=== PATIENT | male | born 1940 | race Caucasian/White ===

== ENCOUNTER 2017-02-15 14:06 | Emergency (ER) | payer BC ==
[~2017-02-15] VITALS: Ht 167.6 cm; Wt 84.4 kg
[~2017-02-15 14:06] MED LIST: ACETAMINOPHEN325 M1 PO; ACIDOPHILUS LA1 EACH PO; ACIDOPHILUS1 EAC3 PO; ALPHA LIPOIC A100 MG PO; AMOXICILLIN 50500 MG PO; ASPIRIN81 M2 PO; BACTROBAN NASAL1 GM PO; CARDIZEM CD240 MG PO; CARVEDILOL12.5 MG PO; CLOPIDOGREL75 MG PO; COLACE 100 MG100 MG PO; CRESTOR10 MG PO; DILTIAZEM 24HR240 M1 PO; FLOMAX0.4 MG PO; GLYCOLAX POWDER17 G1 PO; GYMNEMA SYLVESTR1 GM PO; HUMALOG MI100 UNIT/7 PO; HUMALOG MI100 UNIT/7 SUBQ; JARDIANCE10 MG PO; LAMICTAL 25 MG25 M1 PO; LANTUS SUBQ; LANTUSSOLASTAR SUBQ; LASIX 40 MG TAB40 M1 PO; LASIX 40 MG TAB40 M2 PO; LEXAPRO 10 MG T10 M1 PO; LISINOPRIL10 MG PO; LISINOPRIL20 MG PO; NORVASC10 MG PO; NORVASC5 MG PO; NOVOLOG100 UNIT/1 SUBQ; NUEDEXTA 20-101 EACH PO; OMEGA 3; PACERONE 200 M200 M1 PO; PLAVIX 75 MG TA75 M1 PO; PLAVIX 75 MG TA75 MG PO; POTASSIUM20 PO; PRINIVIL20 MG PO; PROAIR HFA8.5 GM INH; PROBIOTIC1 EAC1 PO; RED YEAST RICE600 MG PO; TOPAMAX 25 MG T25 M1 PO; VANADYL SULFATE1 GM PO; VITAMIN E PO; VITAMINC500 PO; VITCB500GO; WELLBUTRIN XL150 MG PO; ZESTRIL20 MG PO; ZESTRIL40 MG PO; ZESTRIL5 MG PO; [UNRECOGNIZED DRUG - OTHER]; [UNRECOGNIZED DRUG - OTHER]; [UNRECOGNIZED DRUG - OTHER]; [UNRECOGNIZED DRUG - OTHER] PO; [UNRECOGNIZED DRUG - OTHER] PO; [UNRECOGNIZED DRUG - REMARK]
[2017-02-15] MEDS ORDERED: NUEDEXTA 20-101 EACH PO (14:13)
[2017-02-15] MEDS ORDERED: CRESTOR5 MG PO (14:14)
[2017-02-15 15:27] LABS: ABSOLUTE BASOPHILS 0.1 thou/uL (0.0-0.2); ABSOLUTE EOSINOPHILS 0.3 thou/uL (0.0-0.7); ABSOLUTE LYMPHOCYTES 1.5 thou/uL (0.8-5.3); ABSOLUTE MONOCYTES 0.8 thou/uL (0.0-1.2); ABSOLUTE NEUTROPHILS 6.3 thou/uL (1.6-8.1); BASOPHILS 0.7 %; EOSINOPHILS 3.7 %; HEMATOCRIT 38.1 % (42.0-52.0); HEMOGLOBIN 12.6 gm/dL (14.0-18.0); LYMPHOCYTES 16.4 %; MCH 29.2 pg (26.0-34.0); MCHC 33.1 g/dL (28.0-37.0); MCV 88.3 fL (80.0-100.0); MONOCYTES 9.3 %; MPV 8.9 fl. (7.2-11.1); NUCLEATED RBCS 0 /100WBC; PLATELET COUNT* 177 thou/uL (150-400); POLYS 69.9 %; RBC 4.31 mil/uL (4.50-6.00); RDW-CV 14.1 % (10.5-14.5)
[2017-02-15 15:37] LABS: APTT 30.3 Seconds (25.0-31.3); INR 1.1; PROTIME 10.7 Seconds (9.20-11.50)
[2017-02-15 15:42] LABS: ANION GAP 6 mmol/L (7-16); BUN 25 mg/dL (7-18); CALCIUM 8.3 mg/dL (8.5-10.1); CHLORIDE 109 mmol/L (98-107); CO2 29 mmol/L (21-32); CREATININE 1.9 mg/dL (0.6-1.3); GLUCOSE 82 mg/dL (70-99); POTASSIUM 3.9 mmol/L (3.5-5.1); SODIUM 144 mmol/L (136-145)
[2017-02-15 15:47] LABS: ALBUMIN 3.4 g/dL (3.4-5.0); ALKALINE PHOSPHATASE 100 U/L (46-116); NT-PRO BRAIN NAT PEPTIDE 452 pg/mL (<300); SGOT 26 U/L (15-37); SGPT 39 U/L (30-65); TOTAL BILIRUBIN 0.3 mg/dL (<0.1-1.0); TROPONIN-I LEVEL <0.06 ng/mL (<0.06)
[2017-02-15 15:50] LABS: URINE BILIRUBIN NEGATIVE (Negative); URINE BLOOD NEGATIVE (Negative); URINE CLARITY CLEAR; URINE COLOR YELLOW; URINE GLUCOSE-RANDOM 2+ (Negative); URINE KETONES NEGATIVE (Negative); URINE LEUKOCYTES-REFLEX NEGATIVE (Negative); URINE NITRITE-REFLEX NEGATIVE (Negative); URINE PROTEIN NEGATIVE (Negative); URINE SPECIFIC GRAVITY 1.025 (1.005-1.030); URINE UROBILINOGEN 0.2 E.U./dl (0.2-1.0)
[2017-02-15 16:36] VITALS: BP 127/54
--- NOTE | 2017-02-15 16:46 | EKG ---
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 : 1940 Requested By: Branden German Order Number: [id number] MD: Aren Guzman Measurements Intervals [place] Rate: 54 P: NM: QRS: 11 QRSD: 99 T: 45 QT: 446 QTc: 423 Interpretive Statements Sinus bradycardia Delayed R-wave progression Compared to ECG 08/22/2016 13:56:02 Atrial premature complex(es) no longer present Electronically Signed On 02-15-2017 16:46:43 ELECTROLYSIS ENGINEER by Aren Guzman [email or web address] <ELECTRONICALLY SIGNED> By: Aren Guzman MD, [facility] 02/15/17 1646 1514 1514 Aren Guzman MD, FAC /EPI
== END 2017-02-15 16:37 | disposition home or self-care (01) ==
LOC: M.ERS 14:06
PROVIDERS: Family Medicine
DX: R53.1 Weakness (principal); I10 Essential (primary) hypertension; E78.00 Pure hypercholesterolemia, unspecified; J44.9 Chronic obstructive pulmonary disease, unspecified; E11.9 Type 2 diabetes mellitus without complications; G40.909 Epilepsy, unspecified, not intractable, without status epilepticus; Z86.73 Personal history of transient ischemic attack (TIA), and cerebral infarction without residual deficits; I25.10 Atherosclerotic heart disease of native coronary artery without angina pectoris; Z95.5 Presence of coronary angioplasty implant and graft; Z86.79 Personal history of other diseases of the circulatory system; Z88.5 Allergy status to narcotic agent; Z88.2 Allergy status to sulfonamides; Z88.6 Allergy status to analgesic agent; Z88.8 Allergy status to other drugs, medicaments and biological substances

== ENCOUNTER → 2017-03-11 | Outpatient (CLI) | payer BC ==
[~2017-03-11] MED LIST changes: +CRESTOR5 MG PO; +PROSCAR 5MG TABL5 MG PO; +VITAMIN B122500 MC1 PO; +VITAMIN C WIT1000 MG; +VITAMIN D32000 UNI1; +VITAMIN E1000 UNI3 PO
[2017-03-11 13:54] LABS: CREATININE 1.8 mg/dL (0.6-1.3)
== END ==
LOC: M.LAB 13:19 → M.MRI 14:30
PROVIDERS: Nurse Practitioner Family
DX: M47.892 Other spondylosis, cervical region (principal); M43.22 Fusion of spine, cervical region; M50.221 Other cervical disc displacement at C4-C5 level; R27.0 Ataxia, unspecified

== ENCOUNTER 2017-06-17 19:40 | Inpatient (IN) | payer BC ==
[~2017-06-17] VITALS: Ht 167.6 cm; Wt 84.7 kg
[~2017-06-17 19:40] MED LIST changes: -PROSCAR 5MG TABL5 MG PO; -VITAMIN B122500 MC1 PO; -VITAMIN C WIT1000 MG; -VITAMIN D32000 UNI1; -VITAMIN E1000 UNI3 PO
[2017-06-17 19:50] VITALS: BP 154/66
[2017-06-17 20:05] LABS: ABSOLUTE BASOPHILS 0.1 thou/uL (0.0-0.2); ABSOLUTE EOSINOPHILS 0.2 thou/uL (0.0-0.7); ABSOLUTE LYMPHOCYTES 1.5 thou/uL (0.8-5.3); ABSOLUTE MONOCYTES 0.7 thou/uL (0.0-1.2); ABSOLUTE NEUTROPHILS 7.8 thou/uL (1.6-8.1); BASOPHILS 0.6 %; EOSINOPHILS 1.8 %; HEMATOCRIT 39.9 % (42.0-52.0); HEMOGLOBIN 13.2 gm/dL (14.0-18.0); LYMPHOCYTES 15.1 %; MCH 29.9 pg (26.0-34.0); MCHC 33.1 g/dL (28.0-37.0); MCV 90.1 fL (80.0-100.0); MONOCYTES 6.9 %; MPV 8.5 fl. (7.2-11.1); NUCLEATED RBCS 0 /100WBC; PLATELET COUNT* 199 thou/uL (150-400); POLYS 75.6 %; RBC 4.42 mil/uL (4.50-6.00); RDW-CV 14.7 % (10.5-14.5); WBC 10.3 thou/uL (4.0-11.0)
[2017-06-17 20:09] LABS: ANION GAP 8 mmol/L (7-16); BUN 31 mg/dL (7-18); CALCIUM 8.6 mg/dL (8.5-10.1); CHLORIDE 105 mmol/L (98-107); CO2 30 mmol/L (21-32); CREATININE 2.3 mg/dL (0.6-1.3); GLUCOSE 207 mg/dL (70-99); POTASSIUM 4.9 mmol/L (3.5-5.1); SODIUM 143 mmol/L (136-145)
[2017-06-17 20:13] LABS: APTT 29.6 Seconds (25.0-31.3); INR 1.1; PROTIME 10.4 Seconds (9.20-11.50)
[2017-06-17 20:15] LABS: ALBUMIN 3.5 g/dL (3.4-5.0); ALKALINE PHOSPHATASE 101 U/L (46-116); LIPASE 52 U/L (73-393); SGOT 18 U/L (15-37); SGPT 32 U/L (30-65); TOTAL BILIRUBIN 0.4 mg/dL (<0.1-1.0); TOTAL PROTEIN 7.4 g/dL (6.4-8.2); TROPONIN-I LEVEL <0.06 ng/mL (<0.06)
[2017-06-17 20:58] LABS: URINE BILIRUBIN NEGATIVE (Negative); URINE BLOOD NEGATIVE (Negative); URINE CLARITY CLEAR; URINE COLOR STRAW; URINE GLUCOSE-RANDOM 3+ (Negative); URINE KETONES NEGATIVE (Negative); URINE LEUKOCYTES-REFLEX NEGATIVE (Negative); URINE NITRITE-REFLEX NEGATIVE (Negative); URINE PROTEIN NEGATIVE (Negative); URINE SPECIFIC GRAVITY 1.015 (1.005-1.030); URINE UROBILINOGEN 0.2 E.U./dl (0.2-1.0)
[2017-06-17 21:06] LABS: AMP/METHAMP Negative (Negative); BARBITURATES Negative (Negative); BENZODIAZEPINES Negative (Negative); COCAINE Negative (Negative); METHADONE Negative (Negative); OPIATES Negative (Negative); PCP Negative (Negative); THC Negative (Negative)
[2017-06-17 22:50] VITALS: BP 145/58
[2017-06-17 22:52] VITALS: BP 141/63
[2017-06-18 04:00] VITALS: BP 150/58
--- NOTE | 2017-06-18 05:00 | NUR ---
PATIENT RESTED IN BED. PATIENT DID NOT SHOW SIGNS OF DISTRESS. PATIENT IS NPO, PATIENT TO SEE CARDIO AND NEURO IN MORNING. PATIENT DID NOT COMPLAIN OF SOB OR NEW ONSET OF WEAKNESS. PATIENT HAS LEFT SIDED WEAKNESS. PATIENT WAS ABLE TO USE BED SIDE COMMOND. PATIENT IS RUNNING AFIB/AFLUTTER.
--- NOTE | 2017-06-18 05:35 | NUR ---
DOCTOR JOE NOTIFIED OF PATIENT AFIB/AFLUTTER, NO NEW ORDERS.
[2017-06-18 08:00] VITALS: BP 125/56
[2017-06-18 10:38] VITALS: BP 125/56
--- NOTE | 2017-06-18 13:08 | EKG ---
[place] [address] ELECTROCARDIOGRAM REPORT Name: KALIA AWAD Room: [address] ADM IN M.R.#: [id number] Admission: 06/17/17 Attend Phys: Ness Prieto Discharge: Date of : 40 Report #: [id number] THIS REPORT FOR: //name// [facility] Test Date: 2017-06-18 Test Time: 02:21:36 Pat Name: KALIA AWAD Department: Room: [address] Gender: M Lap Hand Tool: MAYELA : 1940 Requested By: Maxime Pace Order Number: [id number] Reading MD: Ian [place] Measurements Intervals [place] Rate: 68 P: TN: QRS: 16 QRSD: 102 T: 10 QT: 405 QTc: 431 Interpretive Statements Atrial flutter with predominant 4:1 AV block Nonspecific repol abnormality, inferior leads Compared to ECG 02/15/2017 15:14:22 AV block, advanced (high-grade) now present Early repolarization now present Sinus bradycardia no longer present Electronically Signed On 06-18-2017 13:08:45 CDT by Ian Swan [email or web address] <ELECTRONICALLY SIGNED> By: Ian Swan MD, FACC 06/18/17 1308 0 0 Ian Swan MD, FACC /EPI
--- NOTE | 2017-06-18 13:08 | EKG ---
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: : 1940 Requested By: Taylor Michelle Order Number: [id number] MD: Ian Swan Measurements Intervals [place] Rate: 67 P: -62 DE: 129 QRS: 1 QRSD: 101 T: 8 QT: 407 QTc: 430 Interpretive Statements aflutter variable block Borderline T abnormalities, inferior leads Compared to ECG 02/15/2017 15:14:22 Ectopic atrial rhythm now present T-wave abnormality now present Sinus bradycardia no longer present Electronically Signed On 06-18-2017 13:08:20 CDT by Ian Swan [email or web address] <ELECTRONICALLY SIGNED> By: Ian Swan MD, [facility] 06/18/17 1308 53 53 Ian Swan MD, FAC /EPI
[2017-06-18 13:20] VITALS: BP 143/64
--- NOTE | 2017-06-18 14:00 | NUR ---
VSS, ASSUMED CARE IN THE AM, ASSESSMENT PERFORMED AND CHARTED, FALL PRECAUTION IN PLACE AND CALL LIGHT IN RECAH AND UP WITH ONE, ON RA AND IS TRACING AFIB ON THE MONITOR, PT DENIES ANY PAIN IS UP WITH STAND BY AND HIS GOAL IS TO D/C TO HOME, AT THIS TIME I HAVE RECIEVED D/C INSTRUCTIONS AND FILLED OUT D/C INSTRUCTIONS, IV AND TELE MONITOR WILL BE TAKEN OFF AT D/C, ALL PT BELONGINGS GATHERED AND PLACE WITH PT, PT DENIES ANY QUESTIONS OR CONCERNS AT TIME OF D/C, PT WAS TAKEN OUT VIA WHEEL CHAIR TO CAR BY STAFF. HOURLY ROUNDS COMPLETED AND WILL FOLLOW WITH D/C
[2017-06-18 16:44] VITALS: BP 117/53
== END 2017-06-18 18:24 | disposition home or self-care (01) | DRG 74 ==
LOC: M.ERS 19:40 → M.TBA-ER 21:52 → M.2W 22:49
PROVIDERS: Personal Emergency Response Attendant; ADMIT Internal Medicine
DX: E11.42 Type 2 diabetes mellitus with diabetic polyneuropathy (principal); I48.92 Unspecified atrial flutter; N18.4 Chronic kidney disease, stage 4 (severe); I48.91 Unspecified atrial fibrillation; I25.10 Atherosclerotic heart disease of native coronary artery without angina pectoris; I12.9 Hypertensive chronic kidney disease with stage 1 through stage 4 chronic kidney disease, or unspecified chronic kidney disease; E78.5 Hyperlipidemia, unspecified; J44.9 Chronic obstructive pulmonary disease, unspecified; Z95.1 Presence of aortocoronary bypass graft; Z95.2 Presence of prosthetic heart valve; Z79.4 Long term (current) use of insulin; Z87.81 Personal history of (healed) traumatic fracture; Z98.52 Vasectomy status; Z88.6 Allergy status to analgesic agent; Z88.2 Allergy status to sulfonamides; Z88.8 Allergy status to other drugs, medicaments and biological substances; Z86.73 Personal history of transient ischemic attack (TIA), and cerebral infarction without residual deficits; Z87.891 Personal history of nicotine dependence; Z79.899 Other long term (current) drug therapy

== ENCOUNTER 2017-09-21 20:10 | Inpatient (IN) | payer BC ==
[~2017-09-21] VITALS: Ht 167.6 cm; Wt 87.2 kg
[2017-09-21 20:12] VITALS: BP 149/57
[2017-09-21] MEDS ORDERED: PROSCAR 5MG TABL5 MG PO (20:35)
[2017-09-21] MEDS ORDERED: VITAMIN B122500 MC1 PO (20:36)
[2017-09-21] MEDS ORDERED: VITAMIN C WIT1000 MG (20:36)
[2017-09-21] MEDS ORDERED: VITAMIN E1000 UNI3 PO (20:37)
[2017-09-21] MEDS ORDERED: VITAMIN D32000 UNI1 (20:37)
[2017-09-21 21:04] LABS: BE -0.9 mmol/L (-2 to +3); HCO3 23.4 mmol/L (22.0-26.0); PCO2 37.6 mmHg (35.0-45.0); PO2 71.4 mmHg (75.0-100.0); pH 7.412 (7.340-7.450)
[2017-09-21 21:04] LABS: ABSOLUTE EOSINOPHILS 0.2 thou/uL (0.0-0.7); ABSOLUTE LYMPHOCYTES 1.1 thou/uL (0.8-5.3); ABSOLUTE MONOCYTES 0.7 thou/uL (0.0-1.2); ABSOLUTE NEUTROPHILS 6.5 thou/uL (1.6-8.1); BASOPHILS 0.3 %; EOSINOPHILS 2.3 %; HEMATOCRIT 36.2 % (42.0-52.0); HEMOGLOBIN 12.1 gm/dL (14.0-18.0); LYMPHOCYTES 13.1 %; MCH 30.4 pg (26.0-34.0); MCHC 33.4 g/dL (28.0-37.0); MCV 91.1 fL (80.0-100.0); MONOCYTES 7.9 %; MPV 8.6 fl. (7.2-11.1); NUCLEATED RBCS 0 /100WBC; PLATELET COUNT* 190 thou/uL (150-400); POLYS 76.4 %; RBC 3.97 mil/uL (4.50-6.00); RDW-CV 14.6 % (10.5-14.5); WBC 8.5 thou/uL (4.0-11.0)
[2017-09-21 21:12] LABS: ANION GAP 8 mmol/L (7-16); BUN 24 mg/dL (7-18); CALCIUM 8.1 mg/dL (8.5-10.1); CHLORIDE 106 mmol/L (98-107); CO2 26 mmol/L (21-32); CREATININE 1.9 mg/dL (0.6-1.3); GLUCOSE 389 mg/dL (70-99); POTASSIUM 4.3 mmol/L (3.5-5.1); SODIUM 140 mmol/L (136-145)
[2017-09-21 21:23] LABS: ALBUMIN 2.8 g/dL (3.4-5.0); ALKALINE PHOSPHATASE 98 U/L (46-116); NT-PRO BRAIN NAT PEPTIDE 529 pg/mL (<300); SGOT 25 U/L (15-37); SGPT 30 U/L (30-65); TOTAL BILIRUBIN 0.2 mg/dL (<0.1-1.0); TOTAL PROTEIN 6.3 g/dL (6.4-8.2); TROPONIN-I LEVEL <0.06 ng/mL (<0.06)
[2017-09-21 21:50] LABS: URINE BILIRUBIN NEGATIVE (Negative); URINE BLOOD NEGATIVE (Negative); URINE CLARITY CLEAR; URINE COLOR YELLOW; URINE GLUCOSE-RANDOM 3+ (Negative); URINE KETONES NEGATIVE (Negative); URINE LEUKOCYTES-REFLEX NEGATIVE (Negative); URINE NITRITE-REFLEX NEGATIVE (Negative); URINE PROTEIN NEGATIVE (Negative); URINE SPECIFIC GRAVITY <= 1.005 (1.005-1.030); URINE UROBILINOGEN 0.2 E.U./dl (0.2-1.0)
[2017-09-21 22:15] VITALS: BP 171/85
[2017-09-21 22:26] VITALS: BP 156/50
--- NOTE | 2017-09-22 04:51 | NUR ---
PT ADMITTED TO ROOM 215 FROM ER. PT MOVED TO HOSPITAL BED WITH HELP FROM STAFF. PT ORIENTED TO ROOM, CALL SYSTEM,A ND BED AND TV CONTORLS. PT VERBALIZED GOOD UNDERSTANDING. RESP REG AND UNALOBRED SKIN W/D NO ACUTE DISTRSS NOTED. O2 2L BNC APPLIED ORDERED. TELEMETRY PACK APPLIED. VSS AND NO ACUTE CHANGES DURING SHIFT WILL CONTINUE TO MONITOR
[2017-09-22 08:00] VITALS: BP 128/47
--- NOTE | 2017-09-22 11:00 | EKG ---
[place] [address] ELECTROCARDIOGRAM REPORT Name: KALIA AWAD PEPPER Room: [address] ADM IN .R.#: [id number] Admission: 09/21/17 Attend Phys: Jhonatan Ceja MD Discharge: Date of : 40 Report #: [id number] THIS REPORT FOR: //name// [facility] ED Test Date: 2017-09-21 Test Time: 20:39:34 Pat Name: KALIA AWAD Department: Room: [facility] Gender: M Watch Dial Maker: : 1940 Requested By: Taylor Michelle Order Number: [id number] MD: Ovi Bui Measurements Intervals [place] Rate: 57 P: -13 [place]: 212 QRS: 12 QRSD: 101 T: 34 QT: 432 QTc: 421 Interpretive Statements Sinus bradycardia Borderline prolonged [place] interval Anteroseptal infarct, old Compared to ECG 06/18/2017 02:21:36 Atrial flutter no longer present Electronically Signed On 09-22-2017 11:00:30 CDT by Ovi Bui [email or web address] <ELECTRONICALLY SIGNED> By: Ovi Bui MD, FACC 09/22/17 1100 38 38 Ovi Bui MD, [facility] /EPI
[2017-09-22 12:23] VITALS: BP 156/55
[2017-09-22 14:22] LABS: CHOLESTEROL 160 mg/dL (<200); HDL CHOLESTEROL 33 mg/dL (>40); LDL CHOLESTEROL 95 mg/dL (<100); TC:HDL 4.8 Ratio (Not establshd); TRIGLYCERIDE 164 mg/dL (<150); VLDL 33 mg/dL (<40)
[2017-09-22 14:23] LABS: SERUM ASSESSMENT Clear
--- NOTE | 2017-09-22 15:03 | NUR ---
Pt is A&O. Resides at home with his cousin. Independent with ADLs, cousin drives. Pt has a walker and cane that he can use for mobility. Pt sleeps with a cpap. Hx of HH. No hx of SNF. Pt's goal is to return home at co with HH, HH to be arranged through [facility].
--- NOTE | 2017-09-22 16:55 | 2DMMODE ---
[place] [address] 2 D/M-MODE ECHOCARDIOGRAM Name: KALIA AWAD PEPPER Room: [address] IN .R.#: [id number] Admission: 09/21/17 Attend Phys: Jhonatan Ceja, Discharge: Date of : 40 Date of Service: 09/22/17 1654 Report #: [id number] THIS REPORT FOR: //name// APPROVED REPORT Study performed: 09/22/2017 14:10:59 EXAM: Comprehensive 2D, Doppler, and color-flow Echocardiogram Patient Location: In-Patient Status: routine BSA: 1.96 HR: 51 bpm BP: 156/55 mmHg Rhythm: NSR Other Information Study Quality: Good Indications Weak, AMS 2D Dimensions LVEF(%): 76.13 (>50%) IVSd: 14.47 (7-11mm) LVOT Diam: 19.21 (18-24mm) LVDd: 41.27 mm PWd: 15.25 (7-11mm) Ascending Ao: 31.49 (22-36mm) LVDs: 22.94 (25-40mm) Aortic Root: 32.07 mm Chaparro's LVEF: 76.13 % Volumes Left Atrial Volume (Systole) LA ESV Index: 44.20 mL/m2 Aortic Valve AoV Peak Nilay.: 1.98 m/s AO Peak Gr.: 15.68 mmHg LVOT Max P.68 mmHg AO Mean Gr.: 7.94 mmHg LVOT Mean P.17 mmHg LVOT Max V: 1.19 m/s AO V2 VTI: 42.20 cm LVOT Mean V: 0.83 m/s JEROME (VTI): 2.00 cm2 LVOT V1 VTI: 29.09 cm Mitral Valve E/A Ratio: 1.14 [place] [address] 2 D/M-MODE ECHOCARDIOGRAM Name: KALIA AWAD PEPPER Room: [address] IN .R.#: [id number] Admission: 09/21/17 Attend Phys: Jhonatan Ceja, Discharge: Date of : 40 Date of Service: 09/22/17 1654 Report #: [id number] MV Decel. Time: 262.57 ms MV E Max Nilay.: 1.01 m/s MV PHT: 76.15 ms MVA (PHT): 2.89 cm2 TDI E/Lateral E': 8.42 E/Medial E': 16.83 Medial E' Nilay.: 0.06 m/s Lateral E' Nilay.: 0.12 m/s Pulmonary Valve PV Peak Nilay.: 1.09 m/s PV Peak Gr.: 4.76 mmHg Tricuspid Valve RAP Estimate: 5.00 mmHg TR Peak Gr.: 29.10 mmHg RVSP: 34.10 mmHg PA Pressure: 34.10 mmHg Left Ventricle The left ventricle is normal size. There is normal LV segmental wall motion. Moderate concentric left ventricular hypertrophy. Left ventricular systolic function is normal. LVEF is 65-70%. Transmitral Doppler flow pattern suggests impaired LV relaxation. Right Ventricle The right ventricle is normal size. The right ventricular systolic function is normal. Atria Left atrium is moderately dilated. Right atrium is mildly dilated. Aortic Valve Bioprosthetic aortic valve is present. Trace aortic regurgitation. There is no aortic valvular stenosis. Mitral Valve There is mitral annular calcification. Mild mitral regurgitation. No evidence of mitral valve stenosis. Tricuspid Valve The tricuspid valve is normal in structure. Mild tricuspid regurgitation. Mild pulmonary hypertension. Pulmonic Valve The pulmonary valve is normal in structure[place] [address] 2 D/M-MODE ECHOCARDIOGRAM Name: STEVENKALIA Handley PEPPER Room: [address] IN [facility]#: [id number] Admission: 09/21/17 Attend Phys: Jhonatan Ceja, Discharge: Date of : 40 Date of Service: 09/22/17 1654 Report #: [id number] regurgitation. Great Vessels The aortic root is normal in size. IVC is normal in size and collapses with >50% inspiration Pericardium There is no pericardial effusion. <Conclusion> The left ventricle is normal size. Moderate concentric left ventricular hypertrophy. Left ventricular systolic function is normal. LVEF is 65-70%. Transmitral Doppler flow pattern suggests impaired LV relaxation. Left atrium is moderately dilated. Right atrium is mildly dilated. Bioprosthetic aortic valve is present. Trace aortic regurgitation. Mild mitral regurgitation. Mild tricuspid regurgitation. Mild pulmonary hypertension. <ELECTRONICALLY SIGNED> By: Aren Guzman MD, FACC 09/22/17 1654 1654 1654 Aren Guzman MD, FACC /INF
[2017-09-22 17:06] VITALS: BP 169/67
[2017-09-22 19:20] VITALS: BP 154/72
[2017-09-23] VITALS: BP 154/41
[2017-09-23 02:07] LABS: GLYCOHEMOGLOBIN (HGB A1C) 7.3 % (4.8-5.6)
--- NOTE | 2017-09-23 05:03 | NUR ---
PT AAOX4, RESP REG AND UNALBORED SKIN W/D NO ACUTE DISTRESS NOTED. TELEMETRY PACK INTACT WITH ALARMS SET. PT WANTED TO WALK HALLS DURING NIGHT. WALKED WITH PATIENT. THE LONGER HE WALKS HE DEVELOPS A RUNNING GAIT AND LEANS FORWARD, PT STATED HE HAD A HISTORY OF FALLING. TRIED TO EXPLAIN TO HIM THE IMPORTANCE OF USING HIS WALKER AT HOME AND TO CONCENTRATE ON HIS PACE WHEN WALKING AND TRY TO SLOW DOWN SOME. HE VERBALIZED UNDERSTANDING, HOWEVER HE STATED HE DIDN'T LIKE USING THE WALKER, STATED HE COULDNT TAKE IT OUT IN YARD WOULD NOT WORK IN THE GRAVEL. ALSO STATED HE COULDN'T GO DOWN OR UPSTAIRS HIS LEGS WOULD BUCKLE. VSS AND NO ACUTE CHANGES DURIGN SHIFT WILL CONTIUE TO MONITOR
[2017-09-23 09:30] VITALS: BP 169/50
--- NOTE | 2017-09-23 10:28 | NUR ---
ASSUMED PT CARE AT 0700 PT IS ALERT AND ORIENTED X 4 PT DENEIS PAIN OR SOA, PT IS UP WITH SBA PT IS A FALL RISK WHEN AMBULATING SHUFFLES AND INCREASES SPEED BED AND CHAIR ALARMS ARE ON, PT IS SB ON THE MONITOR, PT STATED FELT SHAKY AND LIKE BLOOD SUGAR IS LOW CHECKED BLOOD SUGAR 66 PT ATE PT BLOOD SUGARS ARE CHECKED PRN, WILL CONTINUE TO MONITOR
[2017-09-23 12:17] VITALS: BP 146/58
[2017-09-23 15:49] VITALS: BP 155/52
[2017-09-23 20:00] VITALS: BP 105/66
[2017-09-24] VITALS: BP 165/55
[2017-09-24 04:00] VITALS: BP 117/36
--- NOTE | 2017-09-24 04:25 | NUR ---
ASSUMED CARE OF PATIENT AT 1900 THE PATIENT REMAINS SB ON THE MONITOR O2 SAT MAINTAINED ON RA CONTINUES TO BE UP WITH ASSIST OF 1 TO THE BR THE ROUTINE REGIMEN CONTINUES TO BE EFFECTIVE FOR SX MANAGEMENT SAFETY INTERVENTIONS CONTINUE BED LOWERED WHEELS LOCKED CALL LIGHT IN REACH SIDE RAILS UP REPORT TO BE GIVEN TO ONCNGOC MCKEON
[2017-09-24 07:00] VITALS: BP 118/42
[2017-09-24 08:00] VITALS: BP 129/51
--- NOTE | 2017-09-24 08:00 | NUR ---
ASSUMED CARE OF PT ASSESSED AND DOCUMENTED. PT ON CARDIAC MONITER TRACING SB 1ST DEGREE HR 56. PT IS A&O WITH NO C/O PAIN. VSS WNL. PT IS AFEBRILE. PT IS ON FALL PRECAUTIONS PER FACILITY PROTOCOL. HE IS AFEBRILE. PT IS OM ROOM AIR WITH CLEAR LUNGS. BED IS IN LOW POSITION CALL LIGHT IS IN REACH. WM.
--- NOTE | 2017-09-24 11:21 | NUR ---
ORDERS NOTED FOR DC HOME WITH HH PENDING NEURO EVAL. PT WANTS TO USE [facility] AT HOME FOR HH. CALLED AND FAXED ORDERS. AWAITING CALL BACK. PT STATES HE HAS USED THEM IN THE PAST
[2017-09-24 11:23] VITALS: BP 129/51
[2017-09-24 11:53] VITALS: BP 144/56
--- NOTE | 2017-09-24 13:46 | NUR ---
CALLED DR CORDOVA TO CLARIFY PT LAMOTRIGIN. SHE GAVE ORDER TO TAKE 25 MG BID AND MAKE AN APPT FOR 2 WEEKS.
--- NOTE | 2017-09-24 16:31 | NUR ---
CALLED PTS COUSIN HE LIVES WITH. SHE IS ON HER WAY AND BRINGING CLEAN CLOTHES.
--- NOTE | 2017-09-24 17:26 | NUR ---
ASSUMED CARE OF PT THIS AM ASSESSED AND DOCUMENTED. PT IS SB 1ST DEGREE ON CARDIAC MONITER. PT D/C'D TO HOME. ALL CONSULTS OK WITH D/C. EDUCATION GIVEN RE FOLLOW-UPS, MEDICATIONS, AND DRS ORDERS. D/C'D IV. PT D/C'D CARDIAC MONITER. ALL BELONGINGS PACKED UP AND LEFT WITH PT ACCOMPANIED BY STAFF AND PTS COUSIN.
--- NOTE | 2017-09-26 17:33 | CON ---
[address] [address] CONSULTATION Name: KALIA AWAD PEPPER Room: [address] IN M.R.#: [id number] Admission: 09/21/17 Attend Phys: Jhonatan Ceja MD Discharge: 09/24/17 Date of : 40 Report #: [id number] THIS REPORT FOR: //name// CC: Jhonatan Ceja [facility] physician/PCP DATE OF SERVICE: 09/22/2017 HISTORY OF PRESENT ILLNESS: This is a 76-year-old male patient who is a moderately good historian only. I got some of the history from him, some of reviewing the records and some of them I called the patient's son and I talked to him. The patient indicates that he underwent a bypass surgery, then he had 3 strokes. It looks like he told me that he bled after that, so I assumed that his stroke became hemorrhagic. I do not have any of his prior records to verify that. In any event, he was left with left-sided weakness. Left-sided weakness continued, but he has a generalized fatigue and weakness now. It intermittently has become worse. He believes it has been worse in the last few weeks. He thinks his diabetes is controlled, but it does not look like that is the case reviewing his blood sugar here. He also has a GFR of only 35 and it has been persistently low for some time. REVIEW OF SYSTEMS: His 14-point review of system was carried out. He is a diabetic. He had a stroke in the past and in fact he indicates that he had multiple strokes in the past. He was scheduled to have an MRI done as an outpatient, but he has not had one yet. He did have a CT scan on admission and that did not show any acute changes. This patient's records indicate and he gives a history that he has a history of coronary artery disease with bypass surgery, aortic stenosis with valve replacement, hypertension, dyslipidemia, cervical radiculopathy, COPD, and diabetes. He had some reconstruction of fractures, multiple strokes, and question of seizure, his history about the seizure is not definite. The patient is already on Plavix and this was the relevant 14-point review of system. PAST MEDICAL HISTORY: Positive for stroke as well as seizure, but history he does not provide a very well, but he is on Lamictal 100 mg b.i.d. I talked to the son, he said he has recently made some changes with physician in the medications and he is not aware of what he has done. FAMILY HISTORY: Negative for early age stroke. SOCIAL HISTORY: He says he does not drink any alcohol or smoke. PHYSICAL EXAMINATION: The patient's examinations indicate he is alert, responsive, able to follow simple and complex command. His short-term memory is poor, but he is oriented and he feels his memory and fund of knowledge is at his baseline. Cranial nerve examination 2-12 was difficult [place] [address] CONSULTATION Name: KALIA AWAD PEPPER Room: [address] IN [facility]#: [id number] Admission: 09/21/17 Attend Phys: Jhonatan Ceja MD Discharge: 09/24/17 Date of : 40 Report #: [id number] cooperation was poor, but I do not think there is any marked abnormality. I cannot tell about the visual field for sure. Neuromuscular examinations indicate he has a very little movement in the left lower extremity. He is weak in all four extremities. His position sense is present. His reflexes are diminished as expected with diabetes. His tone looks symmetrical. He does not appear to have much ataxia in the upper extremity. He has no papilledema. His pulses are difficult to feel. He has no edema, cyanosis, or jaundice. Cardiac examination is noncontributory. No respiratory difficulty or rhonchi was noticed on either side. He is a reasonably well-developed individual who does not have any dysmorphic features of eyes, ears and face. His vision and hearing looks adequate. He has no thyroid mass. His blood pressure is 128/47, respiration is 18, pulse is 47, and temperature is 97.8. LABORATORY DATA: He did have a CT scan of the head, which appear unremarkable. His blood sugar is uncontrolled. White count is normal. IMPRESSION: I suspect part of his problem is systemic. It looks like he has uncontrolled diabetes, kidney problems and his heart rate goes in 40s. All of it can contribute to his symptoms. It will be desirable to exclude any possibility of a new stroke in this patient by doing an MRI and I think it also will be desirable to do an MRI of the lumbar spine to look for any pathology there, which may be contributing to his symptoms. That will be the initial testing, which can be done in this patient and further workup will depend upon the outcome of that testing, but his systemic problem, especially his pulse and diabetes need to be addressed and I will defer that to yourself. RECOMMENDATIONS: Dr. Franco is making round from tomorrow, she will be taking over the service. The patient knows her well. He provided a poor history, hopefully, she will remember him and we can arrange further management depending upon what she feels and remember about him, but I will go ahead and do an MRI of the brain and lumbar spine because that will be an initial testing in addition to controlling his systemic factors and let him work with PT, OT and then decide about the further management. I will try to ask him more about his seizures and if he is on Lamictal, I will leave him on Lamictal. Few other blood tests need to be done, which I ordered. More than 50 minutes of time was spent taking care of this patient today and majority of that time was spent counseling the patient and subsequently the patient's son and coordinating his care. Thank you very much. <ELECTRONICALLY SIGNED> By: Richard Morales MD 09/26/17 1733 0901 1405Richard Morales MD /nt
== END 2017-09-24 17:40 | disposition home health service (06) | DRG 74 ==
LOC: M.ERS 20:10 → M.TBA-ER 21:17 → M.2W 21:17
PROVIDERS: Internal Medicine; Personal Emergency Response Attendant; ADMIT Internal Medicine
DX: E11.42 Type 2 diabetes mellitus with diabetic polyneuropathy (principal); G72.0 Drug-induced myopathy; E44.0 Moderate protein-calorie malnutrition; I50.22 Chronic systolic (congestive) heart failure; I25.10 Atherosclerotic heart disease of native coronary artery without angina pectoris; E78.5 Hyperlipidemia, unspecified; N18.3 Chronic kidney disease, stage 3 (moderate); E11.65 Type 2 diabetes mellitus with hyperglycemia; E11.22 Type 2 diabetes mellitus with diabetic chronic kidney disease; J44.9 Chronic obstructive pulmonary disease, unspecified; I12.9 Hypertensive chronic kidney disease with stage 1 through stage 4 chronic kidney disease, or unspecified chronic kidney disease; G40.909 Epilepsy, unspecified, not intractable, without status epilepticus; E11.319 Type 2 diabetes mellitus with unspecified diabetic retinopathy without macular edema; Z95.1 Presence of aortocoronary bypass graft; Z95.2 Presence of prosthetic heart valve; Z98.1 Arthrodesis status; Z87.891 Personal history of nicotine dependence; Z87.81 Personal history of (healed) traumatic fracture; Z86.73 Personal history of transient ischemic attack (TIA), and cerebral infarction without residual deficits; Z79.02 Long term (current) use of antithrombotics/antiplatelets; Z79.4 Long term (current) use of insulin; Z79.899 Other long term (current) drug therapy; Z88.2 Allergy status to sulfonamides; Z88.6 Allergy status to analgesic agent; Z88.5 Allergy status to narcotic agent; Z88.8 Allergy status to other drugs, medicaments and biological substances

== ENCOUNTER → 2018-05-03 | Outpatient (CLI) | payer BC ==
[~2018-05-03] MED LIST changes: +PROSCAR 5MG TABL5 MG PO; +VITAMIN B122500 MC1 PO; +VITAMIN C WIT1000 MG; +VITAMIN D32000 UNI1; +VITAMIN E1000 UNI3 PO
--- NOTE | 2018-05-03 15:26 | 2DMMODE ---
[place] [address] 2 D/M-MODE ECHOCARDIOGRAM Name: KALIA AWAD PEPPER Room: [facility]#: [id number] Admission: 05/03/18 Attend Phys: Ian Swan, Discharge: Date of : 40 Date of Service: 05/03/18 1525 Report #: [id number] THIS REPORT FOR: //name// APPROVED REPORT Study performed: 05/03/2018 14:02:36 EXAM: Comprehensive 2D, Doppler, and color-flow Echocardiogram Patient Location: Out-Patient BSA: 1.91 HR: 52 bpm BP: 146/60 mmHg Other Information Study Quality: Good Indications Aortic Valve Disease 2D Dimensions IVSd: 14.79 (7-11mm) LVOT Diam: 19.96 (18-24mm) LVDd: 41.60 mm PWd: 11.87 (7-11mm) Ascending Ao: 29.42 (22-36mm) LVDs: 29.16 (25-40mm) Aortic Root: 25.73 mm Volumes Left Atrial Volume (Systole) LA ESV Index: 31.10 mL/m2 Aortic Valve AoV Peak Nilay.: 2.07 m/s AO Peak Gr.: 17.17 mmHg LVOT Max P.42 mmHg AO Mean Gr.: 10.13 mmHg LVOT Mean P.56 mmHg LVOT Max V: 1.36 m/s AO V2 VTI: 40.96 cm LVOT Mean V: 0.86 m/s JEROME (VTI): 2.29 cm2 LVOT V1 VTI: 29.97 cm Mitral Valve E/A Ratio: 0.90 MV Decel. Time: 314.94 ms MV E Max Nilay.: 0.85 m/s MV PHT: 91.33 ms MVA (PHT): 2.41 [place] [address] 2 D/M-MODE ECHOCARDIOGRAM Name: KALIA AWAD PEPPER Room: [facility]#: [id number] Admission: 05/03/18 Attend Phys: Ian Swan, Discharge: Date of : 40 Date of Service: 05/03/18 1525 Report #: [id number] TDI E/Lateral E': 9.44 E/Medial E': 14.17 Medial E' Nilay.: 0.06 m/s Lateral E' Nilay.: 0.09 m/s Pulmonary Valve PV Peak Nilay.: 1.08 m/s PV Peak Gr.: 4.68 mmHg Tricuspid Valve RAP Estimate: 5.00 mmHg TR Peak Gr.: 20.08 mmHg RVSP: 25.08 mmHg PA Pressure: 25.08 mmHg Left Ventricle The left ventricle is normal size. There is normal LV segmental wall motion. Mild concentric left ventricular hypertrophy. Left ventricular systolic function is normal. The left ventricular ejection fraction is within the normal range. LVEF is 60-65%. Grade I - abnormal relaxation pattern. Right Ventricle The right ventricle is normal size. The right ventricular systolic function is normal. Atria Left atrium is mildly dilated. The right atrium size is normal. Aortic Valve Bioprosthetic aortic valve is present. No aortic regurgitation is present. There is no aortic valvular stenosis. Mitral Valve The mitral valve is normal in structure. Annuloplasty ring is noted in the mitral position. Mild mitral regurgitation. No evidence of mitral valve stenosis. Tricuspid Valve The tricuspid valve is normal in structure. Mild tricuspid regurgitation. estimate pa pressure 30 mm Hg Pulmonic Valve The pulmonary valve is normal in structure. There is no pulmonic [place] [address] 2 D/M-MODE ECHOCARDIOGRAM Name: DELMIKALIA PEPPER Room: [facility]#: [id number] Admission: 05/03/18 Attend Phys: Ian Swan, Discharge: Date of : 40 Date of Service: 05/03/18 1525 Report #: [id number] Great Vessels The aortic root is normal in size. IVC is normal in size and collapses >50% with inspiration. Pericardium There is no pericardial effusion. <Conclusion> Mild concentric left ventricular hypertrophy. LVEF is 60-65%. Left atrium is mildly dilated. Bioprosthetic aortic valve is present. Mild mitral regurgitation. <ELECTRONICALLY SIGNED> By: Ovi Bui MD, FACC 05/03/18 1525 1525 1525 Ovi Bui MD, FACC /INF
== END ==
LOC: M.CRD 13:49
DX: I08.1 Rheumatic disorders of both mitral and tricuspid valves (principal); Z95.3 Presence of xenogenic heart valve; Z88.2 Allergy status to sulfonamides; Z88.5 Allergy status to narcotic agent; Z88.8 Allergy status to other drugs, medicaments and biological substances

== ENCOUNTER → 2018-07-21 | Day surgery (SDC) | payer BC ==
[~2018-07-21] MED LIST changes: +LAMICTAL XR50 MG PO; +LASIX 20 MG TAB20 MG PO
--- NOTE | ~2018-07-21 | PROC ---
[address] [place] [address] PROCEDURE REPORT Name: KALIA AWAD Room: [facility].R.#: [id number] Admission: 07/21/18 Attend Phys: Fabian Vo MD Discharge: Date of : 40 Report #: [id number] THIS REPORT FOR: //name// For GI report, Please see the Provation report in Perceptive 7 content. By: 1048Medical Records Staff BRADLEY /ANCA
[2018-07-21 09:31] LABS: HEMATOCRIT 42.2 % (42.0-52.0); MCH 29.8 pg (26.0-34.0); MCHC 33.2 g/dL (28.0-37.0); MCV 89.7 fL (80.0-100.0); MPV 8.9 fl. (7.2-11.1); RBC 4.71 mil/uL (4.50-6.00); RDW-CV 14.1 % (10.5-14.5); WBC 10.3 thou/uL (4.0-11.0)
[2018-07-21 09:37] LABS: CALCIUM 8.7 mg/dL (8.5-10.1); CREATININE 1.9 mg/dL (0.6-1.3); POTASSIUM 4.5 mmol/L (3.5-5.1)
--- NOTE | 2018-07-21 14:37 | EKG ---
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: : 1940 Requested By: Fabian Vo Order Number: [id number] MD: Ovi Bui Measurements Intervals [place] Rate: 67 P: -8 [place]: 204 QRS: 46 QRSD: 95 T: 45 QT: 422 QTc: 446 Interpretive Statements sinus arrhythmia Compared to ECG 09/21/2017 20:39:34 Sinus bradycardia no longer present Myocardial infarct finding no longer present Electronically Signed On 07-21-2018 14:37:10 CDT by Ovi Bui [email or web address] <ELECTRONICALLY SIGNED> By: Ovi Bui MD, [facility] 07/21/18 1437 3 3 Ovi Bui MD, [facility] /EPI
--- NOTE | 2018-07-25 17:06 | PATH ---
[facility] [address] [place] [address] PATHOLOGY RPT PROCEDURE Name: KALIA BURR PEPPER Room: [facility] Tristen.#: [id number] Admission: 07/21/18 Date of : 40 Discharge: Report #: [id number] Path Case #: [id number] LCA Accession Number: [id number] . 01 Material submitted: . colon - RANDOM BIOPSIES OF COLON . 01 Clinical history: . Diarrhea, history of colon polyps, family history of colon polyps, R/O microscopic colitis/diarrhea . 02 Diagnosis: Random biopsies of colon: - Several hyperplastic lymphoid follicles (Peyer's patches) and focal fresh hemorrhage in otherwise normal colonic mucosa. (TAYO:jame; 07/25/2018) MBR/07/25/2018 . 02 Electronically signed: . Jimi Chambers MD, Pathologist NPI- [id number] . 01 Gross description: . The specimen is received in formalin, labeled "Kalia Burr, random biopsies of colon, R/O microscopic colitis/diarrhea". Received are 10 segments of pale bartlett soft tissue ranging in size from 0.2 to 0.5 cm in maximum dimensions. The specimen is submitted entirely in cassette A1. (CAA; 07/24/2018) QAC/QAC . 02 Pathologist provided ICD-10: R19.7, Z86.010, Z83.71 . 02 CPT . 112723 Specimen Comment: A courtesy copy of this report has been sent to Specimen Comment: [phone], . Specimen Comment: Report sent to / DR AYALA Performed at: 01 [facility] [address], [place], [place] [id number] MD Raza Armendariz MD Phone: [phone] Performed at: [address] [address] [address], [place], [place] [id number] MD Jimi Chambers MD Phone: [phone]
== END | disposition home or self-care (01) ==
LOC: M.SUR 08:14
PROVIDERS: Internal Medicine Gastroenterology
DX: K63.89 Other specified diseases of intestine (principal); K57.30 Diverticulosis of large intestine without perforation or abscess without bleeding; K64.8 Other hemorrhoids; I10 Essential (primary) hypertension; E11.9 Type 2 diabetes mellitus without complications; E78.5 Hyperlipidemia, unspecified; J44.9 Chronic obstructive pulmonary disease, unspecified; N40.0 Benign prostatic hyperplasia without lower urinary tract symptoms; M19.90 Unspecified osteoarthritis, unspecified site; Z88.2 Allergy status to sulfonamides; Z87.19 Personal history of other diseases of the digestive system; Z79.01 Long term (current) use of anticoagulants; Z86.73 Personal history of transient ischemic attack (TIA), and cerebral infarction without residual deficits; Z88.6 Allergy status to analgesic agent; Z88.8 Allergy status to other drugs, medicaments and biological substances; Z79.899 Other long term (current) drug therapy; Z98.890 Other specified postprocedural states; Z86.010 Personal history of colon polyps; Z83.71 Family history of colonic polyps

== ENCOUNTER → 2018-08-08 | Outpatient (CLI) | payer BC ==
--- NOTE | ~2018-08-08 | CARD ---
[facility] [address] [place] [address] CARDIAC CATH REPORT Name: KALIA AWAD PEPPER Room: [facility] SARAH OlivoMalcolm#: [id number] Admission: 08/08/18 Attend Phys: Aren Guzman MD Discharge: Date of : 40 Report #: [id number] THIS REPORT FOR: //name// CC: Maddi Guzman PROCEDURE: Loop recorder removal. PROCEDURE INDICATION: Loop recorder at end-of-life. DESCRIPTION OF PROCEDURE: After informed consent was obtained, the area of the left chest was prepped and draped in sterile fashion. The loop recorder was located by direct palpation. The skin above the loop recorder was anesthetized with 1% lidocaine. Next, after an initial incision was made, the loop recorder was grabbed using Lyn forceps. The loop recorder was then explanted without difficulty. Pressure was held to achieve hemostasis. The skin incision was then closed with Steri-Strips. The patient tolerated the procedure well without complication. IMPRESSION: Loop recorder at end-of-life. CONCLUSION: Loop recorder explanted without complication or difficulty. By: 1722 0218Aren Guzman MD, FACC /nt
[2018-08-08 10:14] VITALS: BP 120/46
== END | disposition home or self-care (01) ==
LOC: M.CL 07-21 11:30
DX: Z45.09 Encounter for adjustment and management of other cardiac device (principal); I25.2 Old myocardial infarction; E11.40 Type 2 diabetes mellitus with diabetic neuropathy, unspecified; Z86.73 Personal history of transient ischemic attack (TIA), and cerebral infarction without residual deficits; Z88.2 Allergy status to sulfonamides; Z88.6 Allergy status to analgesic agent; Z88.8 Allergy status to other drugs, medicaments and biological substances; Z79.899 Other long term (current) drug therapy; Z79.4 Long term (current) use of insulin

== ENCOUNTER 2018-11-10 18:59 | Emergency (ER) | payer BC ==
[~2018-11-10] VITALS: Ht 170.2 cm; Wt 82.6 kg
[2018-11-10 19:37] LABS: ABSOLUTE BASOPHILS 0.1 thou/uL (0.0-0.2); ABSOLUTE EOSINOPHILS 0.3 thou/uL (0.0-0.7); ABSOLUTE LYMPHOCYTES 1.4 thou/uL (0.8-5.3); ABSOLUTE MONOCYTES 0.9 thou/uL (0.0-1.2); ABSOLUTE NEUTROPHILS 7.1 thou/uL (1.6-8.1); BASOPHILS 0.6 %; EOSINOPHILS 2.6 %; HEMATOCRIT 39.6 % (42.0-52.0); HEMOGLOBIN 13.3 gm/dL (14.0-18.0); LYMPHOCYTES 14.3 %; MCH 30.2 pg (26.0-34.0); MCHC 33.6 g/dL (28.0-37.0); MCV 89.9 fL (80.0-100.0); MPV 8.8 fl. (7.2-11.1); NUCLEATED RBCS 0 /100WBC; PLATELET COUNT* 187 thou/uL (150-400); POLYS 73.5 %; RDW-CV 13.8 % (10.5-14.5); WBC 9.7 thou/uL (4.0-11.0)
[2018-11-10 19:47] LABS: CALCIUM 9.1 mg/dL (8.5-10.1); CREATININE 1.7 mg/dL (0.6-1.3)
[2018-11-10 19:48] LABS: APTT 28.7 Seconds (25.0-31.3); PROTIME 10.7 Seconds (9.20-11.50)
[2018-11-10 19:51] LABS: ALBUMIN 3.3 g/dL (3.4-5.0); TOTAL BILIRUBIN 0.3 mg/dL (<0.1-1.0)
[2018-11-10 21:07] VITALS: BP 136/67
--- NOTE | 2018-11-12 16:52 | EKG ---
[place] [address] ELECTROCARDIOGRAM REPORT Name: KALIA AWAD Room: [facility]#: [id number] Admission: 11/10/18 Attend Phys: Discharge: 11/10/18 Date of : 40 Report #: [id number] THIS REPORT FOR: //name// 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: : 1940 Requested By: Branden German Order Number: [id number] MD: Aren Guzman Measurements Intervals [place] Rate: 56 P: -9 AL: 239 QRS: 6 QRSD: 97 T: 15 QT: 443 QTc: 428 Interpretive Statements Sinus rhythm Atrial premature complex Prolonged AL interval Compared to ECG 07/21/2018 09:14:53 Atrial premature complex(es) now present First degree AV block now present Sinus arrhythmia no longer present Electronically Signed On 11-12-2018 16:52:19 CDT by Aren Guzman [email or web address] <ELECTRONICALLY SIGNED> By: Aren Guzman MD, FACC 11/12/18 1652 14 14 Aren Guzman MD, FACC /EPI
== END 2018-11-10 21:08 | disposition home or self-care (01) ==
LOC: M.ERS 18:59
PROVIDERS: Family Medicine
DX: S01.01XA Laceration without foreign body of scalp, initial encounter (principal); I10 Essential (primary) hypertension; E78.5 Hyperlipidemia, unspecified; E11.9 Type 2 diabetes mellitus without complications; Z79.4 Long term (current) use of insulin; Z88.2 Allergy status to sulfonamides; Z88.5 Allergy status to narcotic agent; Z95.1 Presence of aortocoronary bypass graft; Z88.8 Allergy status to other drugs, medicaments and biological substances; Z88.6 Allergy status to analgesic agent; W18.39XA Other fall on same level, initial encounter; Y93.89 Activity, other specified; Y92.89 Other specified places as the place of occurrence of the external cause; Y99.8 Other external cause status

== ENCOUNTER → 2019-01-03 | Outpatient (CLI) | payer BC | LOC: M.MRI 13:01 | DX: M47.817 Spondylosis without myelopathy or radiculopathy, lumbosacral region (principal); M12.88 Other specific arthropathies, not elsewhere classified, other specified site; M48.07 Spinal stenosis, lumbosacral region ==

== ENCOUNTER 2019-04-05 19:31 | Inpatient (IN) | payer BC ==
[~2019-04-05] VITALS: Ht 167.6 cm; Wt 88.5 kg
[2019-04-05 19:32] VITALS: BP 99/41
[2019-04-05 19:58] LABS: ABSOLUTE EOSINOPHILS 0.3 thou/uL (0.0-0.7); ABSOLUTE LYMPHOCYTES 1.1 thou/uL (0.8-5.3); ABSOLUTE MONOCYTES 0.8 thou/uL (0.0-1.2); ABSOLUTE NEUTROPHILS 10.6 thou/uL (1.6-8.1); BASOPHILS 0.4 %; HEMATOCRIT 40.9 % (42.0-52.0); HEMOGLOBIN 13.5 gm/dL (14.0-18.0); LYMPHOCYTES 8.7 %; MCH 29.9 pg (26.0-34.0); MCHC 32.9 g/dL (28.0-37.0); MCV 90.7 fL (80.0-100.0); MONOCYTES 5.9 %; MPV 9.3 fl. (7.2-11.1); NUCLEATED RBCS 0 /100WBC; PLATELET COUNT* 191 thou/uL (150-400); RBC 4.51 mil/uL (4.50-6.00); RDW-CV 14.3 % (10.5-14.5); WBC 12.8 thou/uL (4.0-11.0)
[2019-04-05 20:10] LABS: CALCIUM 8.2 mg/dL (8.5-10.1); CREATININE 1.9 mg/dL (0.6-1.3); POTASSIUM 4.5 mmol/L (3.5-5.1)
[2019-04-05 20:13] LABS: INR 1.1; PROTIME 11.3 Seconds (9.20-11.50)
[2019-04-05 20:20] LABS: ALBUMIN 3.1 g/dL (3.4-5.0); TOTAL BILIRUBIN 0.3 mg/dL (<0.1-1.0); TOTAL PROTEIN 6.8 g/dL (6.4-8.2)
[2019-04-05 21:18] LABS: URINE BILIRUBIN NEGATIVE (Negative); URINE BLOOD NEGATIVE (Negative); URINE CLARITY CLEAR; URINE COLOR YELLOW; URINE GLUCOSE-RANDOM 2+ (Negative); URINE KETONES NEGATIVE (Negative); URINE LEUKOCYTES-REFLEX NEGATIVE (Negative); URINE NITRITE-REFLEX NEGATIVE (Negative); URINE PROTEIN NEGATIVE (Negative); URINE UROBILINOGEN 0.2 E.U./dl (0.2-1.0)
[2019-04-05 22:39] LABS: INFLUENZA A ANTIGEN Negative (Negative); INFLUENZA B ANTIGEN Negative (Negative)
[2019-04-05 22:56] VITALS: BP 146/51
[2019-04-05 23:00] VITALS: BP 152/48
[2019-04-06 05:00] VITALS: BP 113/68
[2019-04-06 07:00] VITALS: BP 142/60
[2019-04-06 12:00] VITALS: BP 105/66
[2019-04-06 12:49] LABS: CHOLESTEROL 128 mg/dL (<200); HDL CHOLESTEROL 27 mg/dL (>40); LDL CHOLESTEROL 70 mg/dL (<100); TC:HDL 4.7 Ratio (Not establshd); TRIGLYCERIDE 159 mg/dL (<150); VLDL 32 mg/dL (<40)
[2019-04-06 12:50] LABS: SERUM ASSESSMENT Clear
[2019-04-06 17:01] VITALS: BP 118/70
[2019-04-06 19:40] VITALS: BP 137/66
[2019-04-06 23:45] VITALS: BP 135/50
[2019-04-07 04:32] VITALS: BP 152/60
[2019-04-07 08:00] VITALS: BP 141/63
[2019-04-07 08:47] LABS: ALBUMIN 2.7 g/dL (3.4-5.0); CREATININE 1.5 mg/dL (0.6-1.3); POTASSIUM 4.4 mmol/L (3.5-5.1); TOTAL BILIRUBIN 0.3 mg/dL (<0.1-1.0); TOTAL PROTEIN 6.1 g/dL (6.4-8.2)
[2019-04-07 12:30] VITALS: BP 145/45
[2019-04-07 14:00] VITALS: BP 123/74
[2019-04-07 19:40] VITALS: BP 134/66
[2019-04-08] VITALS: BP 154/63
[2019-04-08 04:00] VITALS: BP 139/55
[2019-04-08 08:00] VITALS: BP 167/61
[2019-04-08 14:57] VITALS: BP 148/72
[2019-04-08 16:00] VITALS: BP 137/51
[2019-04-08 19:50] VITALS: BP 144/63
[2019-04-09 00:43] VITALS: BP 147/54
[2019-04-09 04:48] LABS: ABSOLUTE BASOPHILS 0.1 thou/uL (0.0-0.2); ABSOLUTE EOSINOPHILS 0.4 thou/uL (0.0-0.7); ABSOLUTE LYMPHOCYTES 1.6 thou/uL (0.8-5.3); ABSOLUTE MONOCYTES 0.8 thou/uL (0.0-1.2); ABSOLUTE NEUTROPHILS 6.1 thou/uL (1.6-8.1); BASOPHILS 0.8 %; EOSINOPHILS 4.7 %; HEMATOCRIT 37.4 % (42.0-52.0); HEMOGLOBIN 12.8 gm/dL (14.0-18.0); LYMPHOCYTES 18.2 %; MCH 30.4 pg (26.0-34.0); MCHC 34.2 g/dL (28.0-37.0); MCV 88.6 fL (80.0-100.0); MONOCYTES 8.3 %; MPV 8.8 fl. (7.2-11.1); NUCLEATED RBCS 0 /100WBC; PLATELET COUNT* 164 thou/uL (150-400); RBC 4.22 mil/uL (4.50-6.00); RDW-CV 14.1 % (10.5-14.5)
[2019-04-09 05:00] VITALS: BP 150/60
[2019-04-09 05:01] LABS: CALCIUM 8.1 mg/dL (8.5-10.1); CREATININE 1.5 mg/dL (0.6-1.3); POTASSIUM 3.6 mmol/L (3.5-5.1)
[2019-04-09 07:05] VITALS: BP 135/50
[2019-04-09 11:52] VITALS: BP 142/59
[2019-04-09 16:39] VITALS: BP 141/58
[2019-04-09 20:00] VITALS: BP 142/64
[2019-04-10] VITALS (9 sets, daily range): BP systolic 127–159; BP diastolic 49–96
[2019-04-10 04:39] LABS: ABSOLUTE BASOPHILS 0.1 thou/uL (0.0-0.2); ABSOLUTE EOSINOPHILS 0.5 thou/uL (0.0-0.7); ABSOLUTE LYMPHOCYTES 1.7 thou/uL (0.8-5.3); ABSOLUTE MONOCYTES 0.9 thou/uL (0.0-1.2); ABSOLUTE NEUTROPHILS 6.6 thou/uL (1.6-8.1); BASOPHILS 0.7 %; EOSINOPHILS 4.6 %; HEMATOCRIT 38.7 % (42.0-52.0); HEMOGLOBIN 13.4 gm/dL (14.0-18.0); LYMPHOCYTES 17.6 %; MCH 30.8 pg (26.0-34.0); MCHC 34.6 g/dL (28.0-37.0); MONOCYTES 9.2 %; MPV 8.9 fl. (7.2-11.1); NUCLEATED RBCS 0 /100WBC; PLATELET COUNT* 175 thou/uL (150-400); POLYS 67.9 %; RBC 4.35 mil/uL (4.50-6.00); RDW-CV 14.4 % (10.5-14.5); WBC 9.8 thou/uL (4.0-11.0)
[2019-04-11] VITALS: BP 131/41
[2019-04-11 04:00] VITALS: BP 116/50
[2019-04-11 05:14] LABS: ABSOLUTE EOSINOPHILS 0.4 thou/uL (0.0-0.7); ABSOLUTE LYMPHOCYTES 1.8 thou/uL (0.8-5.3); ABSOLUTE MONOCYTES 0.9 thou/uL (0.0-1.2); ABSOLUTE NEUTROPHILS 10.3 thou/uL (1.6-8.1); BASOPHILS 0.3 %; EOSINOPHILS 3.2 %; HEMATOCRIT 40.1 % (42.0-52.0); HEMOGLOBIN 13.4 gm/dL (14.0-18.0); LYMPHOCYTES 13.2 %; MCH 29.8 pg (26.0-34.0); MCHC 33.4 g/dL (28.0-37.0); MCV 89.3 fL (80.0-100.0); MONOCYTES 6.9 %; MPV 9.1 fl. (7.2-11.1); NUCLEATED RBCS 0 /100WBC; PLATELET COUNT* 185 thou/uL (150-400); POLYS 76.4 %; RBC 4.49 mil/uL (4.50-6.00); RDW-CV 14.2 % (10.5-14.5); WBC 13.5 thou/uL (4.0-11.0)
[2019-04-11 05:32] LABS: ALBUMIN 2.8 g/dL (3.4-5.0); CREATININE 1.5 mg/dL (0.6-1.3); POTASSIUM 3.6 mmol/L (3.5-5.1); TOTAL BILIRUBIN 0.3 mg/dL (<0.1-1.0); TOTAL PROTEIN 6.3 g/dL (6.4-8.2)
[2019-04-11 09:00] VITALS: BP 141/57
[2019-04-11 11:44] VITALS: BP 145/70
[2019-04-11 16:31] VITALS: BP 137/57
[2019-04-11 19:50] VITALS: BP 143/58
[2019-04-12 00:20] VITALS: BP 138/49
[2019-04-12 04:24] VITALS: BP 162/65
[2019-04-12 05:45] LABS: CALCIUM 8.1 mg/dL (8.5-10.1); CREATININE 1.4 mg/dL (0.6-1.3); POTASSIUM 3.8 mmol/L (3.5-5.1)
[2019-04-12 08:00] VITALS: BP 141/71
[2019-04-12 11:54] VITALS: BP 123/58
[2019-04-12 20:25] VITALS: BP 142/60
[2019-04-13] VITALS: BP 140/54
[2019-04-13 04:00] VITALS: BP 130/55
[2019-04-13 12:52] VITALS: BP 131/59
--- NOTE | 2019-04-13 14:58 | EKG ---
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: : 1940 Requested By: Rukhsana Mendez Order Number: [id number] MD: Ovi Bui Measurements Intervals [place] Rate: 69 P: IA: QRS: 12 QRSD: 98 T: 5 QT: 417 QTc: 447 Interpretive Statements sinus rhythm with first degree av block pac's Anteroseptal infarct, old Borderline T abnormalities, inferior leads Compared to ECG 11/10/2018 19:15:27 Sinus bradycardia no longer present Electronically Signed On 04-06-2019 9:43:52 [employer] by Ovi Bui [email or web address] <ELECTRONICALLY SIGNED> By: Ovi Bui MD, FACC 04/06/19 0943 42 42 Ovi Bui MD, FACC /EPI
[2019-04-13 19:40] VITALS: BP 129/52
[2019-04-14] VITALS: BP 127/52
[2019-04-14 04:00] VITALS: BP 119/37
[2019-04-14 08:30] VITALS: BP 116/55
[2019-04-14 16:00] VITALS: BP 141/65
[2019-04-14 21:00] VITALS: BP 148/48
[2019-04-15 04:48] LABS: CALCIUM 8.1 mg/dL (8.5-10.1); CREATININE 1.7 mg/dL (0.6-1.3); POTASSIUM 4.1 mmol/L (3.5-5.1)
[2019-04-15 08:15] VITALS: BP 149/53
[2019-04-15 16:00] VITALS: BP 138/56
[2019-04-15 20:30] VITALS: BP 154/66
[2019-04-16] MEDS ORDERED: MINOCYCLINE HC100 M2 PO (13:25)
[2019-04-16] MEDS ORDERED: MILK OF MA400 MG/5 M PO (13:26)
[2019-04-16 13:45] VITALS: BP 115/48
== END 2019-04-16 14:30 | DRG 683 ==
LOC: M.ERS 19:31 → M.TBA-ER 21:39 → M.2W 21:39 → M.ORTHSURG 04-14 13:06
PROVIDERS: Emergency Medicine; Internal Medicine; ADMIT Internal Medicine
PROC: 5A09357 Assistance with Respiratory Ventilation, Less than 24 Consecutive Hours, Continuous Positive Airway Pressure (ICD-10-PCS; principal; 2019-04-09)
DX: N17.9 Acute kidney failure, unspecified (principal); E44.0 Moderate protein-calorie malnutrition; K44.0 Diaphragmatic hernia with obstruction, without gangrene; I69.354 Hemiplegia and hemiparesis following cerebral infarction affecting left non-dominant side; E86.0 Dehydration; N18.3 Chronic kidney disease, stage 3 (moderate); E11.65 Type 2 diabetes mellitus with hyperglycemia; R63.0 Anorexia; I25.10 Atherosclerotic heart disease of native coronary artery without angina pectoris; I12.9 Hypertensive chronic kidney disease with stage 1 through stage 4 chronic kidney disease, or unspecified chronic kidney disease; E78.5 Hyperlipidemia, unspecified; J44.9 Chronic obstructive pulmonary disease, unspecified; I08.2 Rheumatic disorders of both aortic and tricuspid valves; R56.9 Unspecified convulsions; E11.40 Type 2 diabetes mellitus with diabetic neuropathy, unspecified; I48.91 Unspecified atrial fibrillation; E11.22 Type 2 diabetes mellitus with diabetic chronic kidney disease; K21.9 Gastro-esophageal reflux disease without esophagitis; K22.2 Esophageal obstruction; Z68.31 Body mass index [BMI] 31.0-31.9, adult; Z95.1 Presence of aortocoronary bypass graft; Z98.1 Arthrodesis status; Z87.891 Personal history of nicotine dependence; Z79.899 Other long term (current) drug therapy; Z79.4 Long term (current) use of insulin; Z88.5 Allergy status to narcotic agent; Z88.2 Allergy status to sulfonamides; Z88.8 Allergy status to other drugs, medicaments and biological substances; Z91.048 Other nonmedicinal substance allergy status; Z95.2 Presence of prosthetic heart valve

== ENCOUNTER → 2019-08-21 | Outpatient (CLI) | payer BC ==
[~2019-08-21] MED LIST changes: +MILK OF MA400 MG/5 M PO; +MINOCYCLINE HC100 M2 PO
== END ==
LOC: M.LAB 11:00
PROVIDERS: ATTEND Internal Medicine
DX: I50.32 Chronic diastolic (congestive) heart failure (principal); I25.10 Atherosclerotic heart disease of native coronary artery without angina pectoris; J98.4 Other disorders of lung; Z95.1 Presence of aortocoronary bypass graft; Z95.3 Presence of xenogenic heart valve

== ENCOUNTER → 2019-09-11 | Outpatient (CLI) | payer BC ==
--- NOTE | 2019-09-11 16:22 | CARDNUC ---
[place] [address] CARDIAC NUCLEAR IMAGING REPORT Name: KALIA AWAD PEPPER Room: [facility]#: [id number] Admission: 09/11/19 Attend Phys: Ne Rivera, Discharge: Date of : 40 Date of Service: 09/11/19 1621 Report #: [id number] THIS REPORT FOR: cc: Maddi Tan Angela Jo RNP Liston, Michael J. MD [facility] ~ APPROVED REPORT Study performed: 09/11/2019 15:05:27 Exam: Nuclear Stress Test Indication: Chest pain, Dyspnea. Patient Location: Out-Patient Stress Tech: Tyesha Burr Stress Nurse: Seth Booth Tech:CARON Viera Ht: 5 ft 6 in Wt: 185 lbs BSA: 1.93 m2 BMI: 29.85 Medical History Medical History: Chest pain, Dyspnea, Orthostatic Hypotension, CKD III, AFib, s/p implantable loop recorder, HX CVA, Syncope, Dizzy, Aortic Valve replacement/Bioprosthetic Valve, Tricuspid Valve repair, Edema, first degree AV block, PVC's,Insulin use, HTN, HLD, CABG x2, Past smoker, Family HX of CAD, CHF, Asthma, Diabetic neuropathy. Medications: Plavix, Lasix, K-Dur, Rosuvastatin, Lisinopril, Lisinopril,. Allergies: ASA, Atorvastatin, Codeine, Diazepam, Escitalopram, Ether, Hydralazine, Morphine, Niacin, Sulfa ABT. Cardiac Risk Factors: Age, Diabetes (insulin), FHX of CAD, HTN, Hyperlipidemia, SOB, Past Smoker, multiple valve surgery, CABG, AFib, CKD III, CHF. Previous Cardiac Procedures: CABG, Aortic Valve replacement, Triscup valve repair. Pretest Chest Pain Characteristics: No chest pain Exercise History: Sedentary Physical Disabilities: Wheelchair user, AFib, HX CVA, diabetic neuropathy. Meds Held (24 hrs): None Stress Test Details Stress Test: Pharmacologic stress testing performed using 0.4 [place] [address] CARDIAC NUCLEAR IMAGING REPORT Name: KALIA AWAD PEPPER Room: [facility]#: [id number] Admission: 09/11/19 Attend Phys: Ne Rivera, Discharge: Date of : 40 Date of Service: 09/11/19 1621 Report #: [id number] regadenoson per 5 mL given IV over 10 seconds. Reason for pharmacologic stress test: Wheelchair user, AFib, HX CVA, Diabetic neuropathy.. HR Resting HR: 67 bpm Max Heart Rate (APMHR): 142 bpm Max HR Achieved: 79 bpm Target HR (85% APMHR): 120 bpm % of APMHR: 55 Recovery HR: 74 bpm BP Resting BP: 160/71 mmHg Max BP: 132/59 mmHg ECG Resting ECG: Sinus Rhythm Stress ECG: Sinus Rhythm ST Change: None Arrhythmia: None Recovery ECG: Sinus Rhythm Recovery ST Change: None Recovery Arrhythmia: None Clinical Reason for Termination: Completed protocol Stress Symptoms: Dyspnea Exercise duration: 00 min 00 sec Exercise capacity: 1.00 METs The patient tolerated Lexiscan infusion without significant cardiac symptoms. Nurse Comments A 78 year old male presented in AFib in wheelchair for a sitting Lexiscan r/t chest pain and dyspnea. Test well tolerated. Recovery unremarkable and patient refused caffeine as it causes him physical discomfort/reactions. Patient was escorted via wheelchair by staff to Nuclear medicine for imaging. Patient was stable and stated he felt good at that time. Stress ECG Conclusion The baseline twelve-lead EKG shows sinus rhythm without significant ST segment or T wave abnormality. EKGs obtained during and post Lexiscan infusion show sinus rhythm with no significant ST segment or T wave changes when compared to baseline. There were no stress-induced arrhythmias. NM EXAM: Myocardial Perfusion REST/[place] [address] CARDIAC NUCLEAR IMAGING REPORT Name: KALIA AWAD PEPPER Room: [facility]#: [id number] Admission: 09/11/19 Attend Phys: Ne Rivera, Discharge: Date of : 40 Date of Service: 09/11/19 1621 Report #: [id number] Imaging Protocol: Rest Tc-99m/Stress Tc-99m 1 day Resting Data Rest SPECT myocardial perfusion imaging was performed in supine position 30 minutes following the intravenous injection of 9.1 mCi of Tc-99m Sestamibi. Time of rest injection: 1340 Date: 09/11/2019 The images were gated to evaluate regional wall motion and calculate left ventricular ejection fraction. Administration Route: IV Administration Site: Left AC Pharmacologic Stress Pharmacologic stress test was performed by injecting Regadenoson 0.4 mg IV push followed by the intravenous injection of 32.2 mCi of Tc-99m Sestamibi. Time of stress injection: 1500 Date: 09/11/2019 Administration Route: IV Administration Site: Left AC Gated Stress SPECT was performed 40 minutes after stress injection. The images were gated to evaluate regional wall motion and calculate left ventricular ejection fraction. Stress only was performed in the Supine position. Study Quality Study: Good Artifact: No artifact Study Data At rest, the left ventricular ejection fraction was 78%.. Post stress, the left ventricular ejection was 74%.. TID = 0.98. Perfusion Perfusion studies obtained at rest and post Lexiscan stress showed uniform uptake of the radioisotope throughout the myocardium. There were no defects to suggest infarct or ischemia. Wall Motion Normal left ventricular wall motion. Nuclear Conclusion ECG Findings: negative for ischemia Clinical Findings: negative for ischemia Nuclear Findings: [place] [address] CARDIAC NUCLEAR IMAGING REPORT Name: KALIA AWAD PEPPER Room: [facility]#: [id number] Admission: 09/11/19 Attend Phys: Ne Rivera, Discharge: Date of : 40 Date of Service: 09/11/19 1621 Report #: [id number] Exercise Capacity: not assessed Left Ventricular Function: normal Risk Study: low Myocardial perfusion images show no defect to suggest infarct or ischemia. Left ventricular systolic function appears normal on gated studies. This is a low risk study. <Conclusion> The baseline twelve-lead EKG shows sinus rhythm without significant ST segment or T wave abnormality. EKGs obtained during and post Lexiscan infusion show sinus rhythm with no significant ST segment or T wave changes when compared to baseline. There were no stress-induced arrhythmias. <ELECTRONICALLY SIGNED> By: Aren Guzman MD, FACC 09/11/191620 20 20 Aren Guzman MD, FACC /INF
== END ==
LOC: M.NUC 08-22 09:34
PROVIDERS: ATTEND Internal Medicine
DX: I25.10 Atherosclerotic heart disease of native coronary artery without angina pectoris (principal); R07.9 Chest pain, unspecified; R06.00 Dyspnea, unspecified; Z95.1 Presence of aortocoronary bypass graft

== ENCOUNTER 2019-12-14 14:36 | Emergency (ER) | payer BC ==
[~2019-12-14] VITALS: Ht 167.6 cm; Wt 90.5 kg
[2019-12-14 14:47] LABS: ABSOLUTE BASOPHILS 0.1 thou/uL (0.0-0.2); ABSOLUTE EOSINOPHILS 0.4 thou/uL (0.0-0.7); ABSOLUTE LYMPHOCYTES 1.4 thou/uL (0.8-5.3); ABSOLUTE MONOCYTES 0.6 thou/uL (0.0-1.2); BASOPHILS 0.9 %; HEMATOCRIT 40.1 % (42.0-52.0); HEMOGLOBIN 13.3 gm/dL (14.0-18.0); LYMPHOCYTES 16.9 %; MCH 30.1 pg (26.0-34.0); MCHC 33.3 g/dL (28.0-37.0); MCV 90.4 fL (80.0-100.0); MONOCYTES 7.3 %; NUCLEATED RBCS 0 /100WBC; PLATELET COUNT* 177 thou/uL (150-400); POLYS 69.9 %; RBC 4.44 mil/uL (4.50-6.00); RDW-CV 14.6 % (10.5-14.5); WBC 8.6 thou/uL (4.0-11.0)
[2019-12-14 15:02] LABS: APTT 28.5 Seconds (25.0-31.3); PROTIME 10.9 Seconds (9.20-11.50)
[2019-12-14 15:05] LABS: CALCIUM 8.5 mg/dL (8.5-10.1); POTASSIUM 4.5 mmol/L (3.5-5.1)
[2019-12-14 15:17] LABS: ALBUMIN 3.4 g/dL (3.4-5.0); CK-MB MASS 2.7 ng/mL (<0.5-3.6); MAGNESIUM 2.4 mg/dL (1.8-2.4); TOTAL BILIRUBIN 0.3 mg/dL (<0.1-1.0); TOTAL PROTEIN 7.7 g/dL (6.4-8.2)
--- NOTE | 2019-12-14 17:25 | EKG ---
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: : 1940 Requested By: Branden German Order Number: [id number] MD: Ovi Bui Measurements Intervals [place] Rate: 67 P: 0 NC: 247 QRS: 9 QRSD: 94 T: 32 QT: 389 QTc: 411 Interpretive Statements Sinus rhythm Multiple premature complexes, vent & supraven Prolonged NC interval Anteroseptal infarct, old Compared to ECG 04/05/2019 19:43:48 Myocardial infarct finding still present Electronically Signed On 12-14-2019 17:25:43 SHIP PILOT by Ovi Bui [email or web address] <ELECTRONICALLY SIGNED> By: Ovi Bui MD, FACC 12/14/19 1725 1439 1439 Ovi Bui MD, [facility] /EPI
[2019-12-14 17:40] VITALS: BP 111/71
== END 2019-12-14 17:43 | disposition home or self-care (01) ==
LOC: M.ERS 14:36
PROVIDERS: Family Medicine
DX: R07.9 Chest pain, unspecified (principal); I25.10 Atherosclerotic heart disease of native coronary artery without angina pectoris; I10 Essential (primary) hypertension; J44.9 Chronic obstructive pulmonary disease, unspecified; E11.9 Type 2 diabetes mellitus without complications; Z79.899 Other long term (current) drug therapy; Z79.4 Long term (current) use of insulin; Z88.6 Allergy status to analgesic agent; Z88.2 Allergy status to sulfonamides; Z88.8 Allergy status to other drugs, medicaments and biological substances